=== PATIENT | female | born 1955 | race Caucasian/White ===

== ENCOUNTER 2021-05-26 11:06 | Outpatient (CLI) | payer MEDICARE, OTHER ==
[2021-05-26] MEDS ORDERED: KRILL OIL PO (11:42)
[2021-05-26] MEDS ORDERED: MAGNESIUM PO (11:42)
[2021-05-26] MEDS ORDERED: VITAMIN C PO (11:42)
[2021-05-26] MEDS ORDERED: VALARIAN PO (11:42)
[2021-05-26] MEDS ORDERED: GLUC-121 PO (11:42)
[2021-05-26] MEDS ORDERED: CO Q-10 PO (11:42)
[2021-05-26] MEDS ORDERED: MELATONIN PO (11:42)
[2021-05-26] MEDS ORDERED: CETI-158 PO (11:42)
[2021-05-26] MEDS ORDERED: VITAMIN D3 PO (11:42)
[2021-05-26] MEDS ORDERED: LEVO100T5 PO (11:42)
[2021-05-26] MEDS ORDERED: CALCIUM PO (11:42)
[2021-05-26] MEDS ORDERED: LUTE1CAP PO (11:42)
[2021-05-26] MEDS ORDERED: MULT-658 PO (11:42)
[2021-05-26] MEDS ORDERED: [UNRECOGNIZED DRUG - CODE] PO (11:42)
[2021-05-26] MEDS ORDERED: BETA PO (11:42)
== END 2021-05-26 23:59 | disposition home or self-care (01) ==
LOC: STAR 11:06
PROVIDERS: ATTEND Obstetrics & Gynecology Female Pelvic Medicine and Reconstructive Surgery
DX: Z01.818 Encounter for other preprocedural examination (principal); N85.2 Hypertrophy of uterus; D25.9 Leiomyoma of uterus, unspecified; N95.0 Postmenopausal bleeding; I44.7 Left bundle-branch block, unspecified
CPT/HCPCS: 93005

== ENCOUNTER 2021-06-01 05:57 | Day surgery (SDC) | payer MEDICARE ==
[~2021-06-01] VITALS: Ht 162.6 cm; Wt 78.0 kg
[~2021-06-01 05:57] MED LIST: BETA PO; CALCIUM PO; CETI-158 PO; CO Q-10 PO; GLUC-121 PO; KRILL OIL PO; LEVO100T5 PO; LUTE1CAP PO; MAGNESIUM PO; MELATONIN PO; MULT-658 PO; PROTAMINE SULFATE 10 MG/ML, 5ML ONE; VALARIAN PO; VITAMIN C PO; VITAMIN D3 PO; [UNRECOGNIZED DRUG - CODE] PO
[2021-06-01 06:29] VITALS: BP 145/96
[2021-06-01] MEDS ORDERED: LACTATED RINGERS 1,000 ML IV SCH ×2 (06:30→09:00)
[2021-06-01] MEDS ORDERED: CHLORHEXIDINE 15 ML UDC PO ONE (06:30)
[2021-06-01] MEDS ORDERED: LIDOCAINE-MPF 1%, 2ML INFIL ONE (06:30)
[2021-06-01] MEDS ORDERED: CHLORHEXIDINE 15 ML UDC ONE (06:33)
[2021-06-01] MEDS ORDERED: LIDOCAINE-MPF 1%, 2ML ONE (06:33)
[2021-06-01] MEDS ORDERED: ACET-76 PO (06:49)
[2021-06-01] MEDS ORDERED: ACETAMINOPHEN 500 MG TABLET PO STA (07:10)
[2021-06-01] MEDS ORDERED: SCOPOLAMINE 1MG PATCH TD STA (07:10)
[2021-06-01] MEDS ORDERED: SCOPOLAMINE 1MG PATCH TD ONE (07:11)
[2021-06-01] MEDS ORDERED: ACETAMINOPHEN 500 MG TABLET ONE (07:11)
[2021-06-01] MEDS ORDERED: ONDANSETRON 2MG/ML, 2ML ONE (07:14)
[2021-06-01] MEDS ORDERED: MIDAZOLAM 1 MG/ML, 2ML ONE (07:14)
[2021-06-01] MEDS ORDERED: LIDOCAINE-MPF 2% ,5ML ONE (07:14)
[2021-06-01] MEDS ORDERED: FENTANYL PF 250 MCG/5ML ONE (07:14)
[2021-06-01] MEDS ORDERED: PROPOFOL 10 MG/ML, 20ML ONE (07:14)
[2021-06-01] MEDS ORDERED: CEFAZOLIN 1,000 MG ONE ×2 (07:14)
[2021-06-01] MEDS ORDERED: BUPIVACAINE/PF 0.25% ONE (07:15)
[2021-06-01] MEDS ORDERED: FLUORESCEIN SODIUM 500 MG/5 ML ONE (07:15)
[2021-06-01] MEDS ORDERED: DEXAMETHASONE 4 MG/ML, 1ML ONE (07:15)
[2021-06-01] MEDS ORDERED: EPINEPHRINE 1 MG/ML, 1ML ONE (07:15)
[2021-06-01] MEDS ORDERED: ROCURONIUM 10MG/ML,5ML ONE (07:16)
[2021-06-01] MEDS ORDERED: MEPERIDINE/PF 25MG/0.5ML IVPush PRN (07:30)
[2021-06-01] MEDS ORDERED: HYDROmorphone 1 MG/ML, 1ML INJ IVPush PRN (07:30)
[2021-06-01] MEDS ORDERED: OXYcodone 5 MG/5 ML ORAL.SOL UDC PO PRN (07:30)
[2021-06-01] MEDS ORDERED: LABETALOL 5MG/ML, 20ML IV PRN (07:30)
[2021-06-01] MEDS ORDERED: ONDANSETRON 2MG/ML, 2ML IVPush PRN ×2 (07:30→09:00)
[2021-06-01] MEDS ORDERED: DIAZEPAM 5 MG/ML, 2ML IVPush PRN (07:30)
[2021-06-01] MEDS ORDERED: hydrALAzine 20 MG/ML, 1ML IV PRN (07:30)
[2021-06-01] MEDS ORDERED: GLYCOPYRROLATE 0.2MG/1ML, 5ML ONE (08:41)
[2021-06-01] MEDS ORDERED: NEOSTIGMINE 1 MG/ML, 10ML ONE (08:41)
[2021-06-01] MEDS ORDERED: HYDROcodone/APAP 5/325 TABLET PO PRN (09:00)
[2021-06-01] MEDS ORDERED: PROMETHAZINE 25 MG SUPP PR ONE (09:00)
[2021-06-01] MEDS ORDERED: IBUPROFEN 600 MG TABLET PO PRN (09:00)
[2021-06-01] MEDS ORDERED: PROMETHAZINE 25 MG/ML, 1ML ONE (09:24)
[2021-06-01] MEDS ORDERED: FENTANYL PF 100 MCG/2ML ONE (09:25)
[2021-06-01] MEDS: PROMETHAZINE 25 MG/ML, 1ML IVPush PRN ×2 (09:27→09:57)
[2021-06-01] MEDS: FENTANYL PF 100 MCG/2ML IV PRN ×2 (09:34→09:54)
[2021-06-01] MEDS ORDERED: HYDROmorphone 2 MG/ML, 1ML ONE (10:10)
== END 2021-06-01 14:15 | disposition home or self-care (01) ==
LOC: OUT 05:57
PROVIDERS: ATTEND Obstetrics & Gynecology Female Pelvic Medicine and Reconstructive Surgery
DX: D25.9 Leiomyoma of uterus, unspecified (principal); N95.0 Postmenopausal bleeding; N30.80 Other cystitis without hematuria; N85.8 Other specified noninflammatory disorders of uterus; E03.9 Hypothyroidism, unspecified; Z79.890 Hormone replacement therapy; Z79.899 Other long term (current) drug therapy; Z88.0 Allergy status to penicillin; Z88.2 Allergy status to sulfonamides; Z88.5 Allergy status to narcotic agent; Z88.8 Allergy status to other drugs, medicaments and biological substances
CPT/HCPCS: 58552; 88307; 88311; J0171; J0690; J1100; J1170; J2250; J2405; J2550; J2704; J2710; J3010; J7120; J2720